=== PATIENT | male | born 1955 | race Caucasian/White ===

== ENCOUNTER 2016-08-25 01:03 | Inpatient (IN) | payer MEDICAID ==
[~2016-08-25] VITALS: Ht 185.4 cm; Wt 90.7 kg
[~2016-08-25 01:03] MED LIST: B50 PO; BENA20TA3 PO; FOLI5TAB PO; GLIP10TA10 PO; HUM3INSU; HYDR-4005 PO; INS5050 SUBCUT; MULT-1116 PO; OMEP20CA10 PO; SIME80TA PO; THIA100T13 PO
[2016-08-25] MEDS ORDERED: ONDANSETRON HCL 4MG/2ML VIAL IV STA (03:59)
[2016-08-25] MEDS ORDERED: MORPHINE SULFATE 4 MG/ML CPJ (NOT FOR IM USE) IV STA (03:59)
[2016-08-25 04:27] LABS: BASOPHILS % 0.7 % (0.0-2.0); EOSINOPHILS % 3.2 % (0.0-5.0); HEMOGLOBIN. 14.2 g/dL (14.0-18.0); LYMPHOCYTES % 56.3 % (20.0-50.0); MEAN CORPUSCULAR HEMOGLOBIN 34.6 pg (28.0-32.0); MEAN CORPUSCULAR VOLUME 99.7 fL (80.0-94.0); MEAN PLATELET VOLUME 7.7 fl (7.4-10.4); MONOCYTES % 7.4 % (2.0-8.0); NEUTROPHILS % 32.4 % (40.0-76.0); PLATELET 289 x1000/uL (130-400); RED BLOOD CELL COUNT 4.11 mill/uL (4.7-6.1); RED CELL DISTRIBUTION WIDTH 12.9 % (11.6-14.6)
[2016-08-25 04:47] LABS: CARBON DIOXIDE 26 mEq/L (21-32); CHLORIDE 111 mEq/L (98-107); TROPONIN I < 0.02 ng/mL (0.00-0.04)
[2016-08-25] MEDS ORDERED: DEXTROSE 50% WATER 50ML SYRINGE IV PRN (10:00)
[2016-08-25] MEDS ORDERED: CLONIDINE 0.1MG TABLET PO PRN (10:00)
[2016-08-25] MEDS ORDERED: SIMETHICONE 80MG TABLET CHEW PO PRN (10:00)
[2016-08-25] MEDS ORDERED: ONDANSETRON HCL 4MG/2ML VIAL IV PRN (10:00)
[2016-08-25] MEDS ORDERED: MAGNESIUM/ALUMINUM HYDROXIDE/SIMETHICONE 30ML UDC PO PRN (10:00)
[2016-08-25] MEDS ORDERED: ACETAMINOPHEN 325MG TABLET PO PRN (10:00)
[2016-08-25] MEDS ORDERED: MVI, ADULT NO.1 10 ML, FOLIC ACID 1 MG, THIAMINE HCL 100 MG in SODIUM CHLORIDE 0.9% 1,0... IV ONE ×4 (10:30)
[2016-08-25] MEDS: LORAZEPAM 2MG/ML CPJ IV PRN ×3 (10:51→23:33)
[2016-08-25] MEDS: BENAZEPRIL 20MG TABLET PO SCH (11:40)
[2016-08-25] MEDS: OMEPRAZOLE 20MG CAPSULE EXTENDED RELEASE PO SCH (11:40)
[2016-08-25] MEDS: BLOOD SUGAR DIAGNOSTIC STRIP TEST SCH ×3 (12:50→21:53)
[2016-08-25] MEDS: CHLORDIAZEPOXIDE 25MG CAPSULE PO SCH ×2 (13:33→21:48)
[2016-08-25] MEDS: INSULIN LISPRO 100 UNITS/ML SUBCUT SCH ×3 (13:34→22:01)
[2016-08-25] MEDS ORDERED: IPRATROPIUM/ALBUTEROL 0.5-3(2.5)MG/3ML NEB HHN PRN (14:45)
[2016-08-25] MEDS ORDERED: LORAZEPAM 2MG/ML CPJ IV PRN (15:00)
[2016-08-25] MEDS: IPRATROPIUM/ALBUTEROL 0.5-3(2.5)MG/3ML NEB HHN SCH ×2 (16:32→20:44)
[2016-08-25 16:56] LABS: CREATINE KINASE 80 IU/L (39-308); TROPONIN I < 0.02 ng/mL (0.00-0.04)
[2016-08-25 20:13] LABS: CLARITY URINE CLEAR (CLEAR); COLOR URINE YELLOW (YELLOW); KETONES URINE NEGATIVE (NEGATIVE); LEUKOCYTE ESTERASE URINE NEGATIVE (NEGATIVE); NITRITE URINE NEGATIVE (NEGATIVE); OCCULT BLOOD URINE NEGATIVE (NEGATIVE); PROTEIN URINE NEGATIVE (NEGATIVE); SPECIFIC GRAVITY URINE 1.014 (1.005-1.030); UROBILINOGEN URINE 0.2 E.U./dL (0.2-1.0)
[2016-08-25 20:27] LABS: *AMPHETAMINES SCREEN URINE NEGATIVE (NEGATIVE); *BARBITURATES SCREEN URINE NEGATIVE (NEGATIVE); *BENZODIAZEPINES SCREEN URINE NEGATIVE (NEGATIVE); *COCAINE SCREEN URINE NEGATIVE (NEGATIVE); CANNABINOID URINE SCREEN NEGATIVE (NEGATIVE); METHADONE URINE SCREEN NEGATIVE (NEGATIVE); OPIATES URINE SCREEN PRESUMTIVE POSITIVE (NEGATIVE); PHENCYCLIDINE URINE SCREEN NEGATIVE (NEGATIVE)
[2016-08-25] MEDS: DIPHENHYDRAMINE 50MG CAPSULE PO PRN (21:52)
[2016-08-25] MEDS: HYDROCODONE/ACETAMINOPHEN 5/325MG TABLET PO PRN (22:47)
[2016-08-26] MEDS: IPRATROPIUM/ALBUTEROL 0.5-3(2.5)MG/3ML NEB HHN SCH ×5 (00:53→16:00)
[2016-08-26] MEDS: CHLORDIAZEPOXIDE 25MG CAPSULE PO SCH ×2 (05:36→12:45)
[2016-08-26] MEDS: BLOOD SUGAR DIAGNOSTIC STRIP TEST SCH ×2 (06:13→12:37)
[2016-08-26 06:27] LABS: BG BASE EXCESS 2.2 mmol/L (-2.0-2.0); BG CARBOXYHEMOGLOBIN 0.8 % (0.5-1.5); BG DEOXYHEMOGLOBIN 7.2 % (0.0-5.0); BG METHEMOGLOBIN 0.3 % (0.0-1.5); BG OXYGEN SATURATION 92.7 % (92.0-98.5); BG OXYHEMOGLOBIN 91.7 % (94.0-97.0); BG PCO2 42.8 mmHg (35.0-45.0); BG PH 7.418 (7.350-7.450); BG PO2 66.9 mmHg (75.0-100.0); BG SAMPLE SITE RIGHT RADIAL; BG TOTAL HEMOGLOBIN 13.7 g/dL (12.0-18.0); BG VENT MODE ROOM AIR
[2016-08-26 06:58] LABS: BASOPHILS % 0.6 % (0.0-2.0); EOSINOPHILS % 2.7 % (0.0-5.0); HEMATOCRIT. 36.9 % (42.0-52.0); HEMOGLOBIN. 12.8 g/dL (14.0-18.0); MEAN CORPUSCULAR HEMOGLOBIN 34.8 pg (28.0-32.0); MEAN CORPUSCULAR VOLUME 100.2 fL (80.0-94.0); MEAN PLATELET VOLUME 8.6 fl (7.4-10.4); MONOCYTES % 8.6 % (2.0-8.0); NEUTROPHILS % 50.1 % (40.0-76.0); PLATELET 237 x1000/uL (130-400); RED BLOOD CELL COUNT 3.69 mill/uL (4.7-6.1); RED CELL DISTRIBUTION WIDTH 12.6 % (11.6-14.6)
[2016-08-26 07:08] LABS: CHLORIDE 100 mEq/L (98-107)
[2016-08-26 07:33] LABS: CARBON DIOXIDE 28 mEq/L (21-32); CREATINE KINASE 60 IU/L (39-308); HDL CHOLESTEROL 43 mg/dL (40-59); LDL CHOLESTEROL 67 mg/dL (5-100); T4 FREE 0.91 ng/dL (0.76-1.46); TROPONIN I < 0.02 ng/mL (0.00-0.04)
[2016-08-26] MEDS ORDERED: GLIPIZIDE 10MG TABLET PO SCH (07:40)
[2016-08-26] MEDS: OMEPRAZOLE 20MG CAPSULE EXTENDED RELEASE PO SCH (08:25)
[2016-08-26] MEDS: BENAZEPRIL 20MG TABLET PO SCH (08:26)
[2016-08-26] MEDS: INSULIN LISPRO 100 UNITS/ML SUBCUT SCH ×2 (08:30→12:44)
[2016-08-26] MEDS: LORAZEPAM 2MG/ML CPJ IV PRN ×2 (08:41→13:15)
[2016-08-26] MEDS: DIPHENHYDRAMINE 50MG CAPSULE PO PRN (08:41)
[2016-08-26] MEDS ORDERED: FOLIC ACID/VITAMIN B COMP W-C TABLET PO SCH (09:00)
[2016-08-26] MEDS ORDERED: THIAMINE HCL 100MG TABLET PO SCH (09:00)
[2016-08-26] MEDS: HYDROCODONE/ACETAMINOPHEN 5/325MG TABLET PO PRN ×2 (09:48→15:58)
[2016-08-26] MEDS ORDERED: GUAIFENESIN/CODEINE 100-10MG/5ML UDC PO PRN (12:00)
[2016-08-26] MEDS ORDERED: LEVOFLOXACIN 500MG PREMIX 100 ML IV SCH (13:00)
[2016-08-26] MEDS ORDERED: METHYLPREDNISOLONE SOD SUCC 40 MG/ML VIAL IV SCH (14:00)
[2016-08-26 15:58] VITALS: BP 114/59
[2016-08-26] MEDS ORDERED: INSULIN DETEMIR UD 100 UNITS/ML SYR SUBCUT SCH (22:00)
[2016-08-27] MEDS ORDERED: FAMOTIDINE 20MG TABLET PO SCH (09:00)
[2016-10-19] MEDS ORDERED: AMLO10TA80 PO (22:10)
[2016-10-19] MEDS ORDERED: BENA10TA3 PO (22:10)
[2016-10-19] MEDS ORDERED: NAPR-681 PO (22:10)
[2016-10-19] MEDS ORDERED: ASPI-1159 PO (22:10)
[2016-10-19] MEDS ORDERED: SERT25TA74 PO (22:10)
[2016-10-19] MEDS ORDERED: ATOR10TA PO (22:10)
== END 2016-08-26 16:45 | disposition left against medical advice (07) | DRG 203 ==
LOC: ER 01:03 → 7WST 05:24 → ENRESERV 11:54 → 7WST 14:49
PROVIDERS: ADMIT Internal Medicine; ATTEND Internal Medicine
DX: M94.0 Chondrocostal junction syndrome [Tietze] (principal); E11.649 Type 2 diabetes mellitus with hypoglycemia without coma; I24.9 Acute ischemic heart disease, unspecified; I10 Essential (primary) hypertension; E11.9 Type 2 diabetes mellitus without complications; F10.10 Alcohol abuse, uncomplicated; F17.200 Nicotine dependence, unspecified, uncomplicated; Z53.21 Procedure and treatment not carried out due to patient leaving prior to being seen by health care provider; J40 Bronchitis, not specified as acute or chronic; R51 Headache; F32.9 Major depressive disorder, single episode, unspecified; Z79.4 Long term (current) use of insulin; Z79.899 Other long term (current) drug therapy
CPT/HCPCS: 36415; 36600; 70450; 71010; 80053; 80061; 80305; 81001; 82375; 82550; 82805; 82962; 83690; 83880; 84439; 84443; 84484; 85025; 93005; 93306; 93970; 94640; 96365; 96366; 96375; 99285; J1815; J1956; J2060; J2270; J2405; J2920; J3411; J3490; J7030; J7050; J7620; Q0163

== ENCOUNTER 2016-10-25 02:40 | Emergency (ER) | payer MEDICAID ==
[~2016-10-25] VITALS: Ht 182.9 cm; Wt 81.0 kg
[~2016-10-25 02:40] MED LIST changes: +AMLO10TA80 PO; +ASPI-1159 PO; +ATOR10TA PO; +BENA10TA3 PO; -BENA20TA3 PO; +NAPR-681 PO; +SERT25TA74 PO
[2016-10-25] MEDS ORDERED: KETOROLAC 30MG/ML VIAL IV STA (07:13)
[2016-10-25] MEDS ORDERED: METHYLPREDNISOLONE SOD SUCC 125 MG/2 ML VIAL IV STA (07:13)
[2016-10-25] MEDS ORDERED: SODIUM CHLORIDE 0.9% 1,000 ML IV ONE (07:13)
[2016-10-25] MEDS ORDERED: IPRATROPIUM/ALBUTEROL 0.5-3(2.5)MG/3ML NEB HHN ONE ×2 (07:15→09:45)
[2016-10-25 07:40] LABS: BASOPHILS % 1.3 % (0.0-2.0); EOSINOPHILS % 3.6 % (0.0-5.0); HEMATOCRIT. 37.6 % (42.0-52.0); HEMOGLOBIN. 12.9 g/dL (14.0-18.0); LYMPHOCYTES % 52.5 % (20.0-50.0); MEAN CORPUSCULAR HEMOGLOBIN 34.5 pg (28.0-32.0); MEAN CORPUSCULAR VOLUME 100.4 fL (80.0-94.0); MEAN PLATELET VOLUME 8.4 fl (7.4-10.4); MONOCYTES % 9.2 % (2.0-8.0); NEUTROPHILS % 33.4 % (40.0-76.0); PLATELET 208 x1000/uL (130-400); RED BLOOD CELL COUNT 3.75 mill/uL (4.7-6.1)
[2016-10-25 07:56] LABS: CARBON DIOXIDE 26 mEq/L (21-32); CHLORIDE 108 mEq/L (98-107)
[2016-10-25] MEDS ORDERED: MORPHINE SULFATE 2 MG/ML CPJ (NOT FOR IM USE) IV ONE (10:00)
[2016-10-25] MEDS ORDERED: MAGNESIUM/ALUMINUM HYDROXIDE/SIMETHICONE 30ML UDC PO STA (10:23)
[2016-10-25] MEDS ORDERED: VISCOUS LIDOCAINE 2% 15 ML UDC PO STA (10:23)
[2016-10-25 13:09] VITALS: BP 105/69
== END 2016-10-25 13:10 | disposition home or self-care (01) ==
LOC: ER 02:58
DX: J44.1 Chronic obstructive pulmonary disease with (acute) exacerbation (principal); F10.10 Alcohol abuse, uncomplicated; F32.9 Major depressive disorder, single episode, unspecified; E11.9 Type 2 diabetes mellitus without complications; I10 Essential (primary) hypertension; R07.89 Other chest pain; F17.200 Nicotine dependence, unspecified, uncomplicated; Z79.82 Long term (current) use of aspirin; Z79.4 Long term (current) use of insulin
CPT/HCPCS: 36415; 71020; 80053; 82962; 84484; 85025; 93005; 94640; 96361; 96374; 96375; 99285; J1885; J2270; J2930; J7030; Z7610; J7620

== ENCOUNTER 2016-11-04 02:26 | Emergency (ER) | payer MEDICAID ==
[~2016-11-04] VITALS: Ht 170.2 cm; Wt 88.5 kg
[2016-11-04] MEDS ORDERED: SODIUM CHLORIDE 0.9% 1,000 ML IV ONE (06:28)
[2016-11-04] MEDS ORDERED: METHYLPREDNISOLONE SOD SUCC 125 MG/2 ML VIAL IV STA (06:28)
[2016-11-04] MEDS ORDERED: PREDNISONE 20MG TABLET PO STA (06:28)
[2016-11-04] MEDS ORDERED: IPRATROPIUM/ALBUTEROL 0.5-3(2.5)MG/3ML NEB HHN ONE ×2 (06:30→07:30)
[2016-11-04 07:11] LABS: CHLORIDE 107 mEq/L (98-107)
[2016-11-04 07:12] LABS: EOSINOPHILS % 4.1 % (0.0-5.0); HEMATOCRIT. 36.9 % (42.0-52.0); HEMOGLOBIN. 12.8 g/dL (14.0-18.0); LYMPHOCYTES % 40.1 % (20.0-50.0); MEAN CORPUSCULAR HEMOGLOBIN 34.6 pg (28.0-32.0); MEAN CORPUSCULAR VOLUME 99.4 fL (80.0-94.0); MEAN PLATELET VOLUME 8.2 fl (7.4-10.4); MONOCYTES % 12.8 % (2.0-8.0); PLATELET 229 x1000/uL (130-400); RED BLOOD CELL COUNT 3.71 mill/uL (4.7-6.1); RED CELL DISTRIBUTION WIDTH 13.2 % (11.6-14.6)
[2016-11-04 07:20] LABS: CARBON DIOXIDE 22 mEq/L (21-32); ETHANOL BLOOD 142 mg/dL
[2016-11-04 09:00] VITALS: BP 114/93
== END 2016-11-04 09:04 | disposition home or self-care (01) ==
LOC: ER 02:26
DX: J44.1 Chronic obstructive pulmonary disease with (acute) exacerbation (principal); F10.229 Alcohol dependence with intoxication, unspecified; G92 Toxic encephalopathy; Y90.6 Blood alcohol level of 120-199 mg/100 ml; E11.9 Type 2 diabetes mellitus without complications; K75.9 Inflammatory liver disease, unspecified; Z87.01 Personal history of pneumonia (recurrent); Z79.4 Long term (current) use of insulin; Z79.82 Long term (current) use of aspirin; I11.9 Hypertensive heart disease without heart failure; Z86.59 Personal history of other mental and behavioral disorders
CPT/HCPCS: 36415; 70450; 71010; 80053; 85025; 93005; 94640; 96361; 96374; 99285; G0482; J2930; J7030; J7512; Z7610; J7620

== ENCOUNTER 2017-06-13 00:18 | Emergency (ER) | payer MEDICAID ==
[~2017-06-13] VITALS: Ht 177.8 cm; Wt 86.0 kg
[2017-06-13 02:52] VITALS: BP 112/69
== END 2017-06-13 03:15 | disposition left against medical advice (07) ==
LOC: ER 00:18
DX: R51 Headache (principal); Z53.21 Procedure and treatment not carried out due to patient leaving prior to being seen by health care provider

== ENCOUNTER 2017-11-09 02:11 | Emergency (ER) | payer MEDICAID ==
[~2017-11-09] VITALS: Ht 182.9 cm; Wt 86.0 kg
[~2017-11-09 02:11] MED LIST changes: +BENA10TA10 PO; -BENA10TA3 PO
[2017-11-09] MEDS ORDERED: PREDNISONE 20MG TABLET PO STA (02:36)
[2017-11-09] MEDS ORDERED: IPRATROPIUM BROMIDE (0.02%) 0.5MG/2.5ML NEB HHN STA (02:36)
[2017-11-09] MEDS: ALBUTEROL (0.083%) 2.5MG/3ML NEB HHN SCH ×2 (03:00→03:30)
[2017-11-09 03:11] LABS: CHLORIDE 104 mEq/L (98-107)
[2017-11-09 03:21] LABS: BASOPHILS % 0.6 % (0.0-2.0); EOSINOPHILS % 2.5 % (0.0-5.0); HEMATOCRIT. 39.6 % (42.0-52.0); HEMOGLOBIN. 13.5 g/dL (14.0-18.0); LYMPHOCYTES % 37.2 % (20.0-50.0); MEAN CORPUSCULAR HEMOGLOBIN 34.1 pg (28.0-32.0); MEAN CORPUSCULAR VOLUME 99.8 fL (80.0-94.0); MEAN PLATELET VOLUME 8.4 fl (7.4-10.4); MONOCYTES % 9.6 % (2.0-8.0); NEUTROPHILS % 50.1 % (40.0-76.0); PLATELET 274 x1000/uL (130-400); RED BLOOD CELL COUNT 3.97 mill/uL (4.7-6.1); RED CELL DISTRIBUTION WIDTH 13.3 % (11.6-14.6)
[2017-11-09 03:26] LABS: PROTHROMBIN TIME 9.9 sec (9.1-11.1)
[2017-11-09] MEDS ORDERED: HYDROCODONE/ACETAMINOPHEN 5/325MG TABLET PO ONE (03:45)
[2017-11-09] MEDS ORDERED: HYDROCODONE/ACETAMINOPHEN 5/325MG TABLET PO SCH (04:18)
[2017-11-09 04:45] VITALS: BP 128/77
== END 2017-11-09 04:48 | disposition home or self-care (01) ==
LOC: ER 02:11
DX: J44.1 Chronic obstructive pulmonary disease with (acute) exacerbation (principal); I10 Essential (primary) hypertension; E11.9 Type 2 diabetes mellitus without complications; F41.9 Anxiety disorder, unspecified; F17.200 Nicotine dependence, unspecified, uncomplicated; Z79.4 Long term (current) use of insulin
CPT/HCPCS: 36415; 71045; 80053; 83880; 84484; 85025; 85610; 93005; 94640; 99285; J7512; J7611; Z7610

== ENCOUNTER 2018-03-03 00:53 | Emergency (ER) | payer MEDICAID ==
[~2018-03-03] VITALS: Ht 177.8 cm; Wt 82.0 kg
[2018-03-03] MEDS ORDERED: HYDROCODONE/ACETAMINOPHEN 5/325MG TABLET PO ONE (03:30)
[2018-03-03 04:15] VITALS: BP 144/67
== END 2018-03-03 06:39 | disposition home or self-care (01) ==
LOC: ER 00:53
DX: S80.11XA Contusion of right lower leg, initial encounter (principal); E11.9 Type 2 diabetes mellitus without complications; F41.9 Anxiety disorder, unspecified; J44.9 Chronic obstructive pulmonary disease, unspecified; F32.9 Major depressive disorder, single episode, unspecified; F17.200 Nicotine dependence, unspecified, uncomplicated; Z79.4 Long term (current) use of insulin; Z79.82 Long term (current) use of aspirin; W01.0XXA Fall on same level from slipping, tripping and stumbling without subsequent striking against object, initial encounter; Y93.89 Activity, other specified; Y92.018 Other place in single-family (private) house as the place of occurrence of the external cause
CPT/HCPCS: 73552; 73562; 99283; L1830

== ENCOUNTER 2019-04-16 21:36 | Emergency (ER) | payer MEDICAID ==
[~2019-04-16] VITALS: Ht 185.4 cm; Wt 88.1 kg
[~2019-04-16 21:36] MED LIST changes: -ASPI-1159 PO; +ASPI-1497 PO; -BENA10TA10 PO; +BENA10TA74 PO; -OMEP20CA10 PO; +OMEP20CA14 PO
[2019-04-17] MEDS ORDERED: IBUPROFEN 600MG TABLET PO STA (01:09)
[2019-04-17 01:48] LABS: BASOPHILS % 1.1 % (0.0-2.0); EOSINOPHILS % 2.8 % (0.0-5.0); HEMATOCRIT. 37.9 % (42.0-52.0); HEMOGLOBIN. 13.3 g/dL (14.0-18.0); LYMPHOCYTES % 43.2 % (20.0-50.0); MEAN CORPUSCULAR HEMOGLOBIN 34.7 pg (28.0-32.0); MEAN CORPUSCULAR VOLUME 99.1 fL (80.0-94.0); MEAN PLATELET VOLUME 8.1 fl (7.4-10.4); MONOCYTES % 9.6 % (2.0-8.0); NEUTROPHILS % 43.3 % (40.0-76.0); PLATELET 358 x1000/uL (130-400); RED BLOOD CELL COUNT 3.83 mill/uL (4.7-6.1); RED CELL DISTRIBUTION WIDTH 13.5 % (11.6-14.6)
[2019-04-17 01:54] LABS: CHLORIDE 102 mEq/L (98-107)
[2019-04-17 03:33] LABS: CLARITY URINE CLEAR (CLEAR); COLOR URINE YELLOW (YELLOW); KETONES URINE NEGATIVE (NEGATIVE); LEUKOCYTE ESTERASE URINE NEGATIVE (NEGATIVE); NITRITE URINE NEGATIVE (NEGATIVE); OCCULT BLOOD URINE NEGATIVE (NEGATIVE); PH URINE 5.5 (4.5-8.0); PROTEIN URINE NEGATIVE (NEGATIVE); SPECIFIC GRAVITY URINE 1.004 (1.005-1.030); UROBILINOGEN URINE 0.2 E.U./dL (0.2-1.0)
[2019-04-17] MEDS ORDERED: KETOROLAC 60MG/2ML VIAL IM ONE (05:15)
[2019-04-17 06:00] VITALS: BP 136/65
== END 2019-04-17 06:29 | disposition home or self-care (01) ==
LOC: ER 21:36
DX: R07.89 Other chest pain (principal); H61.20 Impacted cerumen, unspecified ear; E11.9 Type 2 diabetes mellitus without complications; E78.00 Pure hypercholesterolemia, unspecified; I10 Essential (primary) hypertension; H40.9 Unspecified glaucoma; Z79.82 Long term (current) use of aspirin; Z79.899 Other long term (current) drug therapy
CPT/HCPCS: 36415; 71045; 80053; 81003; 82962; 84484; 85025; 93005; 96372; 99285; J1885

== ENCOUNTER 2019-05-12 12:47 | Emergency (ER) | payer MEDICAID ==
[~2019-05-12] VITALS: Ht 185.4 cm; Wt 87.0 kg
[2019-05-12 13:01] VITALS: BP 124/71
== END 2019-05-12 16:30 | disposition left against medical advice (07) ==
LOC: ER 12:47
DX: R10.9 Unspecified abdominal pain (principal); Z53.21 Procedure and treatment not carried out due to patient leaving prior to being seen by health care provider

== ENCOUNTER 2019-07-08 22:08 | Emergency (ER) | payer MEDICAID ==
[~2019-07-08] VITALS: Ht 185.4 cm; Wt 87.0 kg
[2019-07-09 00:04] LABS: *AMPHETAMINES SCREEN URINE NEGATIVE (NEGATIVE); *BARBITURATES SCREEN URINE NEGATIVE (NEGATIVE); *BENZODIAZEPINES SCREEN URINE NEGATIVE (NEGATIVE); *COCAINE SCREEN URINE NEGATIVE (NEGATIVE)
[2019-07-09 00:05] LABS: CANNABINOID URINE SCREEN NEGATIVE (NEGATIVE); METHADONE URINE SCREEN NEGATIVE (NEGATIVE); OPIATES URINE SCREEN NEGATIVE (NEGATIVE); PHENCYCLIDINE URINE SCREEN NEGATIVE (NEGATIVE)
[2019-07-09 00:08] LABS: CHLORIDE 102 mEq/L (98-107)
[2019-07-09 00:13] LABS: BASOPHILS % 0.9 % (0.0-2.0); EOSINOPHILS % 1.8 % (0.0-5.0); ETHANOL BLOOD 136 mg/dL; HEMATOCRIT. 36.9 % (42.0-52.0); HEMOGLOBIN. 12.6 g/dL (14.0-18.0); MEAN CORPUSCULAR VOLUME 96.6 fL (80.0-94.0); MEAN PLATELET VOLUME 8.3 fl (7.4-10.4); MONOCYTES % 9.5 % (2.0-8.0); NEUTROPHILS % 50.8 % (40.0-76.0); PLATELET 282 x1000/uL (130-400); RED BLOOD CELL COUNT 3.82 mill/uL (4.7-6.1)
[2019-07-09 00:16] LABS: BETA HYDROXYBUTYRATE 0.2 mMol/L (0.0-0.3)
[2019-07-09 00:46] LABS: CLARITY URINE CLEAR (CLEAR); COLOR URINE YELLOW (YELLOW); KETONES URINE NEGATIVE (NEGATIVE); LEUKOCYTE ESTERASE URINE NEGATIVE (NEGATIVE); NITRITE URINE NEGATIVE (NEGATIVE); OCCULT BLOOD URINE NEGATIVE (NEGATIVE); PROTEIN URINE NEGATIVE (NEGATIVE); SPECIFIC GRAVITY URINE 1.015 (1.005-1.030); UROBILINOGEN URINE 0.2 E.U./dL (0.2-1.0)
[2019-07-09 04:47] VITALS: BP 126/76
== END 2019-07-09 04:49 | disposition home or self-care (01) ==
LOC: ER 22:08
DX: F10.129 Alcohol abuse with intoxication, unspecified (principal); M62.81 Muscle weakness (generalized); E11.65 Type 2 diabetes mellitus with hyperglycemia; I10 Essential (primary) hypertension; H40.9 Unspecified glaucoma; Y90.6 Blood alcohol level of 120-199 mg/100 ml; Z79.4 Long term (current) use of insulin; Z79.82 Long term (current) use of aspirin
CPT/HCPCS: 36415; 80053; 80305; 80320; 81003; 82010; 82962; 83880; 84484; 85025; 93005; 99285; G0480

== ENCOUNTER 2019-07-17 16:06 | Emergency (ER) | payer MEDICAID ==
[~2019-07-17] VITALS: Ht 177.8 cm; Wt 77.0 kg
[2019-07-17 16:13] VITALS: BP 92/60
== END 2019-07-17 17:09 | disposition left against medical advice (07) ==
LOC: ER 16:06
DX: R10.9 Unspecified abdominal pain (principal); Z53.21 Procedure and treatment not carried out due to patient leaving prior to being seen by health care provider

== ENCOUNTER 2020-06-25 22:31 | Emergency (ER) | payer MEDICAID ==
[~2020-06-25] VITALS: Ht 182.9 cm; Wt 76.0 kg
[2020-06-25 23:57] LABS: BASOPHILS % 0.6 % (0.0-2.0); EOSINOPHILS % 1.6 % (0.0-5.0); HEMOGLOBIN. 12.2 g/dL (14.0-18.0); MEAN CORPUSCULAR HEMOGLOBIN 33.8 pg (28.0-32.0); MEAN CORPUSCULAR VOLUME 97.2 fL (80.0-94.0); MEAN PLATELET VOLUME 7.3 fl (7.4-10.4); MONOCYTES % 9.3 % (2.0-8.0); NEUTROPHILS % 41.5 % (40.0-76.0); PLATELET 265 x1000/uL (130-400); RED CELL DISTRIBUTION WIDTH 14.2 % (11.6-14.6)
[2020-06-26] MEDS ORDERED: ACETAMINOPHEN 325MG TABLET PO ONE
[2020-06-26 00:06] LABS: CHLORIDE 105 mEq/L (98-107)
[2020-06-26 00:16] LABS: PHENCYCLIDINE URINE SCREEN NEGATIVE (NEGATIVE)
[2020-06-26 00:18] LABS: *AMPHETAMINES SCREEN URINE NEGATIVE (NEGATIVE); *BARBITURATES SCREEN URINE NEGATIVE (NEGATIVE); *BENZODIAZEPINES SCREEN URINE NEGATIVE (NEGATIVE); *COCAINE SCREEN URINE NEGATIVE (NEGATIVE); CANNABINOID URINE SCREEN NEGATIVE (NEGATIVE); METHADONE URINE SCREEN NEGATIVE (NEGATIVE)
[2020-06-26 00:20] LABS: OPIATES URINE SCREEN NEGATIVE (NEGATIVE)
[2020-06-26 02:00] VITALS: BP 120/52
== END 2020-06-26 02:20 | disposition home or self-care (01) ==
LOC: ER 22:31
DX: S00.03XA Contusion of scalp, initial encounter (principal); R07.89 Other chest pain; F10.229 Alcohol dependence with intoxication, unspecified; E11.9 Type 2 diabetes mellitus without complications; I10 Essential (primary) hypertension; G43.909 Migraine, unspecified, not intractable, without status migrainosus; F17.290 Nicotine dependence, other tobacco product, uncomplicated; W18.39XA Other fall on same level, initial encounter; Y93.89 Activity, other specified; Y92.89 Other specified places as the place of occurrence of the external cause; Y99.8 Other external cause status; Z79.899 Other long term (current) drug therapy
CPT/HCPCS: 36415; 71045; 80053; 80305; 84484; 85025; 93005; 99285

== ENCOUNTER 2021-05-01 21:05 | Emergency (ER) | payer MEDICAID ==
[~2021-05-01] VITALS: Ht 170.2 cm; Wt 73.0 kg
[2021-05-01 23:11] LABS: BASOPHILS % 1.1 % (0.0-2.0); EOSINOPHILS % 0.6 % (0.0-5.0); HEMATOCRIT. 45.6 % (42.0-52.0); LYMPHOCYTES % 41.6 % (20.0-50.0); MEAN CORPUSCULAR HEMOGLOBIN 34.5 pg (28.0-32.0); MEAN CORPUSCULAR VOLUME 98.8 fL (80.0-94.0); MONOCYTES % 8.3 % (2.0-8.0); NEUTROPHILS % 48.4 % (40.0-76.0); PLATELET 384 x1000/uL (130-400); RED BLOOD CELL COUNT 4.62 mill/uL (4.7-6.1); RED CELL DISTRIBUTION WIDTH 13.9 % (11.6-14.6)
[2021-05-01 23:25] LABS: CHLORIDE 100 mEq/L (98-107)
[2021-05-01 23:30] LABS: ETHANOL BLOOD 230 mg/dL
[2021-05-01 23:43] LABS: CLARITY URINE CLEAR (CLEAR); COLOR URINE YELLOW (YELLOW); KETONES URINE NEGATIVE (NEGATIVE); LEUKOCYTE ESTERASE URINE NEGATIVE (NEGATIVE); NITRITE URINE NEGATIVE (NEGATIVE); OCCULT BLOOD URINE NEGATIVE (NEGATIVE); PROTEIN URINE NEGATIVE (NEGATIVE); UROBILINOGEN URINE 0.2 E.U./dL (0.2-1.0)
[2021-05-02] MEDS ORDERED: ACETAMINOPHEN 325MG TABLET PO ONE
[2021-05-02 00:21] LABS: *AMPHETAMINES SCREEN URINE NEGATIVE (NEGATIVE)
[2021-05-02 00:22] LABS: *BENZODIAZEPINES SCREEN URINE NEGATIVE (NEGATIVE); *COCAINE SCREEN URINE NEGATIVE (NEGATIVE); CANNABINOID URINE SCREEN NEGATIVE (NEGATIVE); METHADONE URINE SCREEN NEGATIVE (NEGATIVE); OPIATES URINE SCREEN NEGATIVE (NEGATIVE); PHENCYCLIDINE URINE SCREEN NEGATIVE (NEGATIVE)
[2021-05-02 02:20] LABS: *BARBITURATES SCREEN URINE NEGATIVE (NEGATIVE)
[2021-05-02] MEDS ORDERED: CHLORDIAZEPOXIDE 25MG CAPSULE PO ONE (05:30)
[2021-05-02] MEDS ORDERED: FAMOTIDINE 20MG TABLET PO ONE (08:45)
[2021-05-02] MEDS ORDERED: DICYCLOMINE 10 MG/5 ML ORAL SYR PO STA (08:59)
[2021-05-02] MEDS ORDERED: MAGNESIUM/ALUMINUM HYDROXIDE/SIMETHICONE 30ML UDC PO STA (08:59)
[2021-05-02] MEDS ORDERED: VISCOUS LIDOCAINE 2% 15 ML UDC PO STA (08:59)
[2021-05-02] MEDS ORDERED: ARIPIPRAZOLE 5MG TABLET PO SCH (10:15)
[2021-05-02] MEDS ORDERED: FLUOXETINE HCL 10 MG CAPSULE PO SCH (10:15)
[2021-05-02] MEDS ORDERED: LORAZEPAM 1MG TABLET PO ONE (13:00)
[2021-05-02] MEDS ORDERED: INSULIN REGULAR (HUMULIN R) 300UNITS/3ML VIAL SUBCUT ONE (20:30)
[2021-05-02 21:57] VITALS: BP 130/76
== END 2021-05-02 22:04 | disposition home or self-care (01) ==
LOC: ER 21:05
DX: F32.A Depression, unspecified (principal); R45.851 Suicidal ideations; E11.65 Type 2 diabetes mellitus with hyperglycemia; I10 Essential (primary) hypertension; F10.229 Alcohol dependence with intoxication, unspecified; Y90.7 Blood alcohol level of 200-239 mg/100 ml; Z20.822 Contact with and (suspected) exposure to COVID-19; Z79.4 Long term (current) use of insulin; Z87.11 Personal history of peptic ulcer disease; Z75.1 Person awaiting admission to adequate facility elsewhere
CPT/HCPCS: 36415; 80053; 80305; 80307; 80320; 80329; 81003; 82962; 85025; 87426; 99285; C9803; J1815; U0003; U0005; G0480

== ENCOUNTER 2021-10-10 | Emergency (ER) | payer MEDICAID ==
[~2021-10-10] VITALS: Ht 177.8 cm; Wt 82.0 kg
[2021-10-10 00:02] VITALS: BP 132/87
[2021-10-10] MEDS ORDERED: FOLIC ACID 1 MG, THIAMINE HCL 100 MG, MVI, ADULT NO.1 10 ML in DEXTROSE 5% WATER 1,000 ML IV ONE ×4 (01:45)
[2021-10-10 03:02] LABS: BASOPHILS % 0.8 % (0.0-2.0); EOSINOPHILS % 2.4 % (0.0-5.0); HEMATOCRIT. 35.5 % (42.0-52.0); HEMOGLOBIN. 12.5 g/dL (14.0-18.0); LYMPHOCYTES % 50.6 % (20.0-50.0); MEAN CORPUSCULAR HEMOGLOBIN 34.2 pg (28.0-32.0); MEAN CORPUSCULAR VOLUME 97.3 fL (80.0-94.0); MEAN PLATELET VOLUME 7.3 fl (7.4-10.4); MONOCYTES % 8.3 % (2.0-8.0); NEUTROPHILS % 37.9 % (40.0-76.0); PLATELET 330 x1000/uL (130-400); RED BLOOD CELL COUNT 3.65 mill/uL (4.7-6.1); RED CELL DISTRIBUTION WIDTH 13.6 % (11.6-14.6)
[2021-10-10 03:10] LABS: CHLORIDE 103 mEq/L (98-107)
[2021-10-10 03:19] LABS: ETHANOL BLOOD 274 mg/dL
[2021-10-10 04:06] LABS: CLARITY URINE CLEAR (CLEAR); COLOR URINE YELLOW (YELLOW); KETONES URINE NEGATIVE (NEGATIVE); LEUKOCYTE ESTERASE URINE NEGATIVE (NEGATIVE); NITRITE URINE NEGATIVE (NEGATIVE); OCCULT BLOOD URINE NEGATIVE (NEGATIVE); PROTEIN URINE NEGATIVE (NEGATIVE); SPECIFIC GRAVITY URINE 1.007 (1.005-1.030); UROBILINOGEN URINE 0.2 E.U./dL (0.2-1.0)
[2021-10-10 04:40] LABS: *AMPHETAMINES SCREEN URINE NEGATIVE (NEGATIVE); *BARBITURATES SCREEN URINE NEGATIVE (NEGATIVE); *BENZODIAZEPINES SCREEN URINE NEGATIVE (NEGATIVE); *COCAINE SCREEN URINE NEGATIVE (NEGATIVE); CANNABINOID URINE SCREEN NEGATIVE (NEGATIVE); METHADONE URINE SCREEN NEGATIVE (NEGATIVE); OPIATES URINE SCREEN NEGATIVE (NEGATIVE); PHENCYCLIDINE URINE SCREEN NEGATIVE (NEGATIVE)
== END 2021-10-10 05:41 | disposition home or self-care (01) ==
LOC: ER
DX: T51.0X1A Toxic effect of ethanol, accidental (unintentional), initial encounter (principal); I10 Essential (primary) hypertension; E11.9 Type 2 diabetes mellitus without complications; Z79.899 Other long term (current) drug therapy; Z86.59 Personal history of other mental and behavioral disorders; Z98.890 Other specified postprocedural states; Y92.9 Unspecified place or not applicable
CPT/HCPCS: 36415; 70450; 71045; 74176; 80053; 80305; 80320; 81003; 83605; 83690; 84484; 85025; 96365; 96366; 99285; J3411; J3490; J7070; G0480

== ENCOUNTER 2022-06-04 22:16 | Emergency (ER) | payer OTHER | END 2022-06-04 22:47 | disposition left against medical advice (07) | LOC: ER 22:16 | DX: Z53.21 Procedure and treatment not carried out due to patient leaving prior to being seen by health care provider (principal) ==

== ENCOUNTER 2023-06-02 00:03 | Emergency (ER) | payer OTHER ==
[~2023-06-02] VITALS: Ht 170.2 cm; Wt 69.0 kg
[~2023-06-02 00:03] MED LIST changes: +OMEP40CA20 MT
[2023-06-02 00:08] VITALS: TEMP 98.8; O2SAT 98
[2023-06-02] MEDS: IBUPROFEN 600MG TABLET PO ONE (01:09)
[2023-06-02 01:14] VITALS: BP 122/63; PULSE 79; RESP 16
[2023-06-02] MEDS ORDERED: IBUP-2028 MT (02:40)
[2023-06-02] MEDS ORDERED: HYDR-4001 MT (02:40)
== END 2023-06-02 03:46 | disposition home or self-care (01) ==
LOC: ER 00:09
DX: S52.602A Unspecified fracture of lower end of left ulna, initial encounter for closed fracture (principal); S80.212A Abrasion, left knee, initial encounter; S01.112A Laceration without foreign body of left eyelid and periocular area, initial encounter; E11.9 Type 2 diabetes mellitus without complications; I10 Essential (primary) hypertension; H40.9 Unspecified glaucoma; F10.20 Alcohol dependence, uncomplicated; W01.0XXA Fall on same level from slipping, tripping and stumbling without subsequent striking against object, initial encounter; Y93.89 Activity, other specified; Y92.89 Other specified places as the place of occurrence of the external cause; Y99.8 Other external cause status
CPT/HCPCS: 73110; 73560; 70450; 12011; 29125; 99284; Z7610 ×3

== ENCOUNTER 2024-02-25 20:00 | Emergency (ER) | payer OTHER ==
[~2024-02-25] VITALS: Ht 185.4 cm; Wt 82.0 kg
[~2024-02-25 20:00] MED LIST changes: -GLIP10TA10 PO; +GLIP10TA17 PO; +HYDR-4001 MT; +IBUP-2028 MT
[2024-02-25 20:06] VITALS: BP 95/46; PULSE 66; RESP 18; TEMP 97.9; O2SAT 100
== END 2024-02-25 22:16 | disposition left against medical advice (07) ==
LOC: ER 20:00
DX: M25.531 Pain in right wrist (principal); I10 Essential (primary) hypertension; E11.9 Type 2 diabetes mellitus without complications; K21.9 Gastro-esophageal reflux disease without esophagitis; Z53.21 Procedure and treatment not carried out due to patient leaving prior to being seen by health care provider

== ENCOUNTER 2024-03-19 23:45 | Emergency (ER) | payer OTHER ==
[~2024-03-19] VITALS: Ht 180.3 cm; Wt 93.0 kg
[2024-03-19 23:57] VITALS: TEMP 98.5; O2SAT 98
[2024-03-20 01:26] LABS: CLARITY URINE CLEAR (CLEAR); COLOR URINE YELLOW (YELLOW); GLUCOSE URINE 3+ (NEGATIVE); KETONES URINE NEGATIVE (NEGATIVE); LEUKOCYTE ESTERASE URINE NEGATIVE (NEGATIVE); NITRITE URINE NEGATIVE (NEGATIVE); OCCULT BLOOD URINE NEGATIVE (NEGATIVE); PROTEIN URINE NEGATIVE (NEGATIVE); SPECIFIC GRAVITY URINE 1.008 (1.005-1.030); UROBILINOGEN URINE 0.2 E.U./dL (0.2-1.0)
[2024-03-20 02:29] VITALS: BP 118/57; PULSE 78; RESP 16; O2SAT 99
[2024-03-20] MEDS: ACETAMINOPHEN 325MG TABLET PO ONE (03:45)
[2024-03-20] MEDS ORDERED: CEPH500T MT (04:03)
[2024-03-20 04:59] LABS: RBC URINE NONE SEEN /hpf (0-2); WBC URINE 0-2 /hpf (0-2)
[2024-03-20 05:00] LABS: BACTERIA URINE NONE SEEN; SQUAMOUS EPITHELIAL CELL URINE NONE SEEN /lpf (RARE/1+)
== END 2024-03-20 05:20 | disposition home or self-care (01) ==
LOC: ER 23:45
DX: N39.0 Urinary tract infection, site not specified (principal); E11.9 Type 2 diabetes mellitus without complications; I10 Essential (primary) hypertension; K21.9 Gastro-esophageal reflux disease without esophagitis; Z79.82 Long term (current) use of aspirin; Z79.4 Long term (current) use of insulin; Z79.899 Other long term (current) drug therapy; Z79.84 Long term (current) use of oral hypoglycemic drugs
CPT/HCPCS: 81003; 99283

== ENCOUNTER 2024-06-26 23:23 | Emergency (ER) | payer MEDICARE, MEDICAID ==
[~2024-06-26] VITALS: Ht 175.3 cm; Wt 68.0 kg
[~2024-06-26 23:23] MED LIST changes: +GABA-1180 MT; -GLIP10TA17 PO; -IBUP-2028 MT; +LACT-394 MT; -NAPR-681 PO; +NICO-645 TP; -OMEP20CA14 PO; +TAMS-54 MT
[2024-06-26 23:27] VITALS: O2SAT 98
[2024-06-27 00:55] LABS: BASOPHILS % 0.7 % (0.0-2.0); EOSINOPHILS % 2.5 % (0.0-5.0); HEMATOCRIT. 28.7 % (42.0-52.0); HEMOGLOBIN. 9.8 g/dL (14.0-18.0); LYMPHOCYTES % 44.5 % (20.0-50.0); MEAN CORPUSCULAR HEMOGLOBIN 33.2 pg (28.0-32.0); MEAN CORPUSCULAR HGB CONC 34.3 g/dL (31.0-37.0); MEAN CORPUSCULAR VOLUME 96.7 fL (80.0-94.0); MEAN PLATELET VOLUME 7.3 fl (7.4-10.4); NEUTROPHILS % 45.3 % (40.0-76.0); PLATELET 337 x1000/uL (130-400); RED BLOOD CELL COUNT 2.96 mill/uL (4.7-6.1); RED CELL DISTRIBUTION WIDTH 14.4 % (11.6-14.6); WHITE BLOOD COUNT 7.2 x1000/uL (4.5-11.0)
[2024-06-27 01:01] LABS: CHLORIDE 100 mEq/L (98-107); POTASSIUM 3.7 mEq/L (3.5-5.1); SODIUM 133 mEq/L (136-145)
[2024-06-27 01:02] LABS: CALCIUM 8.5 mg/dL (8.7-10.4); CARBON DIOXIDE 26 mEq/L (21-32)
[2024-06-27 01:07] LABS: CREATININE 0.7 mg/dL (0.6-1.3); ETHANOL BLOOD 238 mg/dL (<10); GLUCOSE 214 mg/dL (70-105); UREA NITROGEN BLOOD 7 mg/dL (9-23)
[2024-06-27 01:08] LABS: TROPONIN I HIGH SENSITIVITY 4 ng/L (3.0-53)
[2024-06-27 04:59] VITALS: BP 130/64; PULSE 65; RESP 18; TEMP 36.8; O2SAT 98
== END 2024-06-27 05:00 | disposition home or self-care (01) ==
LOC: ER 23:23
DX: S09.90XA Unspecified injury of head, initial encounter (principal); F10.129 Alcohol abuse with intoxication, unspecified; I10 Essential (primary) hypertension; E11.9 Type 2 diabetes mellitus without complications; Z79.899 Other long term (current) drug therapy; Z79.82 Long term (current) use of aspirin; Z79.4 Long term (current) use of insulin; Z90.49 Acquired absence of other specified parts of digestive tract; W01.0XXA Fall on same level from slipping, tripping and stumbling without subsequent striking against object, initial encounter; Y93.89 Activity, other specified; Y92.89 Other specified places as the place of occurrence of the external cause; Y99.8 Other external cause status; Y90.7 Blood alcohol level of 200-239 mg/100 ml
CPT/HCPCS: 36415; 71045; 73030; 80048; 80320; 84484; 85025; 99284; 99285; G0480

== ENCOUNTER 2024-08-11 15:20 | Inpatient (IN) | payer MEDICARE, MEDICAID ==
[~2024-08-11] VITALS: Ht 185.4 cm; Wt 77.1 kg
[~2024-08-11 15:20] MED LIST changes: -AMLO10TA80 PO; -B50 PO; +BENA-8 PO; -BENA10TA74 PO; +CHLO25CA10 PO; +FAMO20TA8 PO; -FOLI5TAB PO; -HUM3INSU; -HYDR-4001 MT; -HYDR-4005 PO; -INS5050 SUBCUT; -LACT-394 MT; +LANTUSUD SUBCUT; +METF-414 PO; -NICO-645 TP; +NICO-786 TP; -OMEP40CA20 MT; +OMEP40CA20 PO; +SERT-422 PO; -SERT25TA74 PO
[2024-08-11 15:22] VITALS: O2SAT 98
[2024-08-11 16:11] LABS: BASOPHILS % 1.2 % (0.0-2.0); EOSINOPHILS % 1.1 % (0.0-5.0); HEMATOCRIT. 29.3 % (42.0-52.0); HEMOGLOBIN. 9.7 g/dL (14.0-18.0); LYMPHOCYTES % 31.4 % (20.0-50.0); MEAN CORPUSCULAR HEMOGLOBIN 32.5 pg (28.0-32.0); MEAN CORPUSCULAR VOLUME 98.5 fL (80.0-94.0); MEAN PLATELET VOLUME 7.6 fl (7.4-10.4); MONOCYTES % 8.6 % (2.0-8.0); NEUTROPHILS % 57.7 % (40.0-76.0); PLATELET 302 x1000/uL (130-400); RED BLOOD CELL COUNT 2.98 mill/uL (4.7-6.1); RED CELL DISTRIBUTION WIDTH 14.6 % (11.6-14.6); WHITE BLOOD COUNT 6.5 x1000/uL (4.5-11.0)
[2024-08-11] MEDS: FAMOTIDINE 20MG/2ML VIAL IV ONE (16:11)
[2024-08-11] MEDS: MAGNESIUM/ALUMINUM HYDROXIDE/SIMETHICONE 30ML UDC PO ONE (16:11)
[2024-08-11 16:15] LABS: CHLORIDE 97 mEq/L (98-107); POTASSIUM 4.8 mEq/L (3.5-5.1); SODIUM 129 mEq/L (136-145)
[2024-08-11 16:16] LABS: CALCIUM 8.7 mg/dL (8.7-10.4); CARBON DIOXIDE 19 mEq/L (21-32)
[2024-08-11] MEDS: KETOROLAC 30MG/ML VIAL IV ONE (16:18)
[2024-08-11] MEDS: ONDANSETRON 4MG ODT PO ONE (16:19)
[2024-08-11 16:21] LABS: UREA NITROGEN BLOOD 10 mg/dL (9-23)
[2024-08-11 16:23] LABS: ALANINE AMINOTRANSFERASE 19 IU/L (10-49); ASPARTATE AMINOTRANSFERASE 41 IU/L (<34); BILIRUBIN DIRECT < 0.1 mg/dL (<=3.0); BILIRUBIN TOTAL 0.3 mg/dL (0.1-1.0); PROTEIN TOTAL 6.1 g/dL (6.0-8.3); TROPONIN I HIGH SENSITIVITY 9 ng/L (3.0-53)
[2024-08-11 16:33] LABS: GLUCOSE 526 mg/dL (70-105)
[2024-08-11] MEDS: SODIUM CHLORIDE 0.9% 1,000 ML IV ONE (17:21)
[2024-08-11] MEDS: CEFTRIAXONE 1GM/50ML 50 ML IV NR (17:22)
[2024-08-11 17:30] LABS: BG BASE EXCESS -4.7 mmol/L (-2.0-3.0); BG CARBOXYHEMOGLOBIN 4.6 % (0.5-1.5); BG DEOXYHEMOGLOBIN 6.3 % (0.0-5.0); BG HCO3 ACT 17.7 mmol/L (21.0-28.0); BG METHEMOGLOBIN 0.3 % (0.5-1.5); BG OXYGEN SATURATION 93.4 % (94.0-98.0); BG OXYHEMOGLOBIN 88.8 % (94.0-98.0); BG PCO2 25.2 mmHg (35.0-48.0); BG PO2 67.3 mmHg (83.0-108.0); BG TOTAL HEMOGLOBIN 10.9 g/dL (13.5-17.5)
[2024-08-11 17:32] LABS: BG FRACTION INSPIRED OXYGEN 21; BG SAMPLE SITE LEFT BRACHIAL; BG VENT MODE ROOM AIR
[2024-08-11] MEDS: AZITHROMYCIN 500MG/250ML 250 ML IV NR (17:37)
[2024-08-11] MEDS: INSULIN REGULAR (HUMULIN R) 1000UNITS/10ML VIAL SUBCUT NR (19:58)
[2024-08-11] MEDS ORDERED: SIMETHICONE 80MG TABLET CHEW PO PRN (20:00)
[2024-08-11] MEDS ORDERED: MAGNESIUM/ALUMINUM HYDROXIDE/SIMETHICONE 30ML UDC PO PRN (20:00)
[2024-08-11] MEDS ORDERED: ZOLPIDEM TARTRATE 5MG TABLET PO PRN (20:00)
[2024-08-11] MEDS ORDERED: IPRATROPIUM/ALBUTEROL 0.5-3(2.5)MG/3ML NEB NEB PRN (20:00)
[2024-08-11] MEDS ORDERED: DEXTROSE 50% WATER 50ML SYRINGE IV PRN (20:00)
[2024-08-11] MEDS ORDERED: ACETAMINOPHEN 325MG TABLET PO PRN (20:00)
[2024-08-11] MEDS ORDERED: CLONIDINE 0.1MG TABLET PO PRN (20:00)
[2024-08-11] MEDS ORDERED: ONDANSETRON HCL 4MG/2ML INJ IV PRN (20:00)
[2024-08-11 20:15] VITALS: BP 167/72; PULSE 68; RESP 68; TEMP 36.3; O2SAT 100
[2024-08-11] MEDS ORDERED: NALOXONE HCL 0.4MG/ML VIAL IV PRN (20:30)
[2024-08-11] MEDS: BLOOD SUGAR DIAGNOSTIC STRIP TEST SCH (20:37)
[2024-08-11] MEDS ORDERED: FAMOTIDINE(NEO) 1MG/ML SUSP PO SCH (21:00)
[2024-08-11 22:00] VITALS: BP 165/75; PULSE 65; RESP 20; TEMP 36.3
[2024-08-11] MEDS ORDERED: IOHEXOL-350 100 ML BOTTLE ONE (22:27)
[2024-08-11] MEDS: ATORVASTATIN CALCIUM 10MG TABLET PO SCH (22:29)
[2024-08-11] MEDS: ENOXAPARIN 40MG/0.4ML SYR SUBCUT SCH (22:29)
[2024-08-11] MEDS: FAMOTIDINE 20MG TABLET PO SCH (22:29)
[2024-08-11] MEDS: INSULIN GLARGINE 100 UNITS/ML SUBCUT SCH (22:31)
[2024-08-11] MEDS: INSULIN LISPRO 100 UNITS/ML SUBCUT SCH (22:32)
[2024-08-11] MEDS: SODIUM CHLORIDE 0.9% 1,000 ML IV SCH (22:33)
[2024-08-11] MEDS: HYDROCODONE/ACETAMINOPHEN 5/325MG TABLET PO PRN (22:35)
[2024-08-12] VITALS: BP 140/55; PULSE 77; RESP 18; TEMP 36.3; O2SAT 97
[2024-08-12 04:00] VITALS: BP 124/64; PULSE 64; RESP 18; TEMP 36.4; O2SAT 97
[2024-08-12 08:00] VITALS: BP 156/56; PULSE 68; RESP 20; TEMP 36.1; O2SAT 97
[2024-08-12] MEDS: ASPIRIN 81MG EC TABLET PO SCH (08:53)
[2024-08-12] MEDS: GABAPENTIN 300MG CAPSULE PO SCH (08:53)
[2024-08-12] MEDS: THIAMINE HCL 100MG TABLET PO SCH (08:54)
[2024-08-12] MEDS: SERTRALINE HCL 50MG TABLET PO SCH (08:54)
[2024-08-12] MEDS: TAMSULOSIN HCL 0.4MG SR CAPSULE PO SCH (08:55)
[2024-08-12] MEDS: PANTOPRAZOLE SODIUM 40 MG/VIAL IV SCH (08:55)
[2024-08-12] MEDS: LISINOPRIL 10MG TABLET PO SCH (08:55)
[2024-08-12] MEDS ORDERED: BENAZEPRIL HCL 10 MG PO SCH (09:00)
[2024-08-12 10:32] LABS: CARBON DIOXIDE 24 mEq/L (21-32); CHLORIDE 101 mEq/L (98-107); POTASSIUM 4.9 mEq/L (3.5-5.1); SODIUM 132 mEq/L (136-145)
[2024-08-12 10:34] LABS: CALCIUM 8.6 mg/dL (8.7-10.4)
[2024-08-12 10:36] LABS: TROPONIN I HIGH SENSITIVITY 9 ng/L (3.0-53)
[2024-08-12 10:38] LABS: CREATININE 0.7 mg/dL (0.6-1.3); UREA NITROGEN BLOOD 12 mg/dL (9-23)
[2024-08-12 10:50] LABS: GLUCOSE 297 mg/dL (70-105)
[2024-08-12 12:00] VITALS: BP 108/58; PULSE 78; RESP 19; TEMP 36.6; O2SAT 95
[2024-08-12] MEDS: DIPHENHYDRAMINE 50MG/ML VIAL IV PRN (12:11)
[2024-08-12 16:00] VITALS: BP 133/50; PULSE 60; RESP 19; TEMP 36.7; O2SAT 97
[2024-08-12] MEDS: CEFTRIAXONE 1GM/50ML 50 ML IV SCH (16:32)
[2024-08-12] MEDS: AZITHROMYCIN 500MG/250ML 250 ML IV SCH (17:24)
[2024-08-12] MEDS ORDERED: CEFTRIAXONE 1GM/50ML 50 ML IV SCH (17:30)
[2024-08-12] MEDS ORDERED: AZITHROMYCIN 500MG/250ML 250 ML IV SCH (18:00)
[2024-08-12 20:00] VITALS: BP 116/50; PULSE 65; RESP 16; TEMP 36.7; O2SAT 100
[2024-08-13] VITALS: BP 148/58; PULSE 60; RESP 18; TEMP 36.6; O2SAT 98
[2024-08-13] MEDS: FAMOTIDINE 20MG TABLET PO SCH (00:47)
[2024-08-13 04:00] VITALS: BP 151/71; PULSE 57; RESP 16; TEMP 36.1; O2SAT 100
[2024-08-13 08:18] VITALS: BP 160/62; PULSE 60; RESP 18; TEMP 35.8; O2SAT 97
[2024-08-13 09:01] VITALS: BP 160/62; PULSE 60; RESP 18
== END 2024-08-13 09:30 | disposition left against medical advice (07) | DRG 190 ==
LOC: ER 15:20 → EDBEDREQ 15:51 → ENRESERV 17:43 → 8WST 20:18
PROVIDERS: ADMIT Internal Medicine; ATTEND Internal Medicine
DX: J44.1 Chronic obstructive pulmonary disease with (acute) exacerbation (principal); E11.00 Type 2 diabetes mellitus with hyperosmolarity without nonketotic hyperglycemic-hyperosmolar coma (NKHHC); J96.91 Respiratory failure, unspecified with hypoxia; R10.13 Epigastric pain; E78.5 Hyperlipidemia, unspecified; I10 Essential (primary) hypertension; H40.9 Unspecified glaucoma; Z53.29 Procedure and treatment not carried out because of patient's decision for other reasons; Z87.11 Personal history of peptic ulcer disease; Z79.82 Long term (current) use of aspirin; Z79.899 Other long term (current) drug therapy; E11.65 Type 2 diabetes mellitus with hyperglycemia
CPT/HCPCS: 36415; 36600; 71045; 71275; 80048; 80076; 82010; 82375; 82805; 82962; 83036; 83880; 83930; 84484; 85025; 85379; 93005; 93970; 99291; A4606; J0456; J0696; J1200; J1308; J1650; J1815; J1885; J2470; Q0162; Q9967

== ENCOUNTER 2024-09-03 00:34 | Emergency (ER) | payer MEDICARE, MEDICAID ==
[~2024-09-03] VITALS: Ht 172.7 cm; Wt 66.0 kg
[2024-09-03 00:38] VITALS: TEMP 36.9; O2SAT 98
[2024-09-03] MEDS: VISCOUS LIDOCAINE 2% 15 ML UDC MM ONE (00:53)
[2024-09-03] MEDS: MAGNESIUM/ALUMINUM HYDROXIDE/SIMETHICONE 30ML UDC PO ONE (00:53)
[2024-09-03 04:58] LABS: BASOPHILS % 0.8 % (0.0-2.0); EOSINOPHILS % 1.7 % (0.0-5.0); HEMATOCRIT. 30.9 % (42.0-52.0); HEMOGLOBIN. 10.5 g/dL (14.0-18.0); LYMPHOCYTES % 52.5 % (20.0-50.0); MEAN PLATELET VOLUME 8.0 fl (7.4-10.4); MONOCYTES % 10.2 % (2.0-8.0); NEUTROPHILS % 34.8 % (40.0-76.0); PLATELET 294 x1000/uL (130-400); RED BLOOD CELL COUNT 3.25 mill/uL (4.7-6.1); RED CELL DISTRIBUTION WIDTH 15.4 % (11.6-14.6)
[2024-09-03 05:00] VITALS: O2SAT 100
[2024-09-03 05:13] LABS: INR 0.9
[2024-09-03 05:14] LABS: CREATININE 0.9 mg/dL (0.6-1.3); ETHANOL BLOOD 187 mg/dL (<10); TROPONIN I HIGH SENSITIVITY < 4 ng/L (3.0-53); UREA NITROGEN BLOOD 9 mg/dL (9-23)
[2024-09-03 05:20] VITALS: BP 109/53; PULSE 65; RESP 14; TEMP 98.5
[2024-09-03] MEDS ORDERED: PROT40 MT (05:30)
[2024-09-03] MEDS: ASPIRIN 81MG TABLET PO ONE (06:14)
== END 2024-09-03 06:15 | disposition home or self-care (01) ==
LOC: ER 00:34
DX: R07.89 Other chest pain (principal); F10.20 Alcohol dependence, uncomplicated; E11.9 Type 2 diabetes mellitus without complications; R06.02 Shortness of breath; I10 Essential (primary) hypertension
CPT/HCPCS: 36415; 71045; 80048; 80320; 83880; 84484; 85025; 93005; 99285; G0480

== ENCOUNTER 2024-09-09 02:18 | Emergency (ER) | payer MEDICARE, MEDICAID ==
[~2024-09-09] VITALS: Ht 185.4 cm; Wt 79.0 kg
[~2024-09-09 02:18] MED LIST changes: +PROT40 MT
[2024-09-09 02:28] VITALS: O2SAT 98
[2024-09-09 04:07] LABS: BASOPHILS % 2.0 % (0.0-2.0); EOSINOPHILS % 3.6 % (0.0-5.0); HEMATOCRIT. 32.3 % (42.0-52.0); HEMOGLOBIN. 11.1 g/dL (14.0-18.0); LYMPHOCYTES % 30.3 % (20.0-50.0); MONOCYTES % 7.2 % (2.0-8.0); NEUTROPHILS % 56.9 % (40.0-76.0); RED BLOOD CELL COUNT 3.39 mill/uL (4.7-6.1); RED CELL DISTRIBUTION WIDTH 15.3 % (11.6-14.6)
[2024-09-09 04:18] LABS: INR 0.9
[2024-09-09 04:26] LABS: CREATININE 1.0 mg/dL (0.6-1.3); UREA NITROGEN BLOOD 12 mg/dL (9-23)
[2024-09-09 04:27] LABS: ETHANOL BLOOD 116 mg/dL (<10); TROPONIN I HIGH SENSITIVITY 5 ng/L (3.0-53)
[2024-09-09 04:46] LABS: MEAN PLATELET VOLUME 7.9 fl (7.4-10.4); PLATELET 280 x1000/uL (130-400)
[2024-09-09 05:07] VITALS: BP 132/53; PULSE 64; RESP 14; TEMP 37; O2SAT 98
[2024-09-09] MEDS: VISCOUS LIDOCAINE 2% 15 ML UDC MM NR (05:12)
[2024-09-09] MEDS: MAGNESIUM/ALUMINUM HYDROXIDE/SIMETHICONE 30ML UDC PO NR (05:13)
[2024-09-09] MEDS: SODIUM CHLORIDE 0.9% 1,000 ML IV ONE (05:14)
[2024-09-09] MEDS ORDERED: MAG-55 MT (05:25)
== END 2024-09-09 05:32 | disposition home or self-care (01) ==
LOC: ER 02:18
DX: R53.1 Weakness (principal); E86.0 Dehydration; F10.129 Alcohol abuse with intoxication, unspecified; E11.65 Type 2 diabetes mellitus with hyperglycemia; I10 Essential (primary) hypertension; Z79.82 Long term (current) use of aspirin; Z79.899 Other long term (current) drug therapy; Z86.73 Personal history of transient ischemic attack (TIA), and cerebral infarction without residual deficits; Z87.11 Personal history of peptic ulcer disease; Y90.9 Presence of alcohol in blood, level not specified
CPT/HCPCS: 36415; 71045; 80048; 80320; 84484; 85025; 93005; 99285; G0480

== ENCOUNTER 2024-12-23 23:55 | Inpatient (IN) | payer MEDICARE, MEDICAID ==
[~2024-12-23] VITALS: Ht 185.4 cm; Wt 71.7 kg
[~2024-12-23 23:55] MED LIST changes: +MAG-55 MT
[2024-12-24] VITALS (9 sets, daily range): BP systolic 112–148; BP diastolic 64–80; PULSE 68–75; RESP 9–18; TEMP 36.4–36.5848; O2SAT 98–99
[2024-12-24 00:25] LABS: BASOPHILS % 1.6 % (0.0-2.0); EOSINOPHILS % 1.2 % (0.0-5.0); HEMATOCRIT. 32.9 % (42.0-52.0); HEMOGLOBIN. 10.8 g/dL (14.0-18.0); LYMPHOCYTES % 35.7 % (20.0-50.0); MONOCYTES % 8.1 % (2.0-8.0); NEUTROPHILS % 53.4 % (40.0-76.0); RED BLOOD CELL COUNT 3.40 mill/uL (4.7-6.1); RED CELL DISTRIBUTION WIDTH 15.0 % (11.6-14.6)
[2024-12-24] MEDS: SODIUM CHLORIDE 0.9% 1,000 ML IV ONE ×2 (00:33→02:13)
[2024-12-24 00:39] LABS: CREATININE 0.9 mg/dL (0.6-1.3); UREA NITROGEN BLOOD 10 mg/dL (9-23)
[2024-12-24 00:41] LABS: PHOSPHORUS 2.7 mg/dL (2.5-4.9)
[2024-12-24] MEDS: MAGNESIUM/ALUMINUM HYDROXIDE/SIMETHICONE 30ML UDC PO ONE (00:43)
[2024-12-24] MEDS: ASPIRIN 325MG EC TABLET PO ONE (00:43)
[2024-12-24] MEDS: MORPHINE SULFATE 4 MG/ML INJ (FOR IV/IM USE) IV ONE (00:44)
[2024-12-24 00:57] LABS: TROPONIN I HIGH SENSITIVITY 9 ng/L (3.0-53)
[2024-12-24] MEDS: INSULIN REGULAR (HUMULIN R) 1000UNITS/10ML VIAL SUBCUT NR (02:17)
[2024-12-24 03:16] LABS: MEAN PLATELET VOLUME 8.6 fl (7.4-10.4); PLATELET 240 x1000/uL (130-400)
[2024-12-24] MEDS ORDERED: PNEUMOCOCCAL 20-VAL CONJ-DIP CRM 0.5ML IM ONE (10:00)
[2024-12-24] MEDS ORDERED: ACETAMINOPHEN 325MG TABLET PO PRN ×2 (10:00)
[2024-12-24] MEDS ORDERED: IPRATROPIUM/ALBUTEROL 0.5-3(2.5)MG/3ML NEB HHN PRN (10:00)
[2024-12-24] MEDS ORDERED: DEXTROSE 50% WATER 50ML SYRINGE IV PRN ×2 (10:00→20:15)
[2024-12-24] MEDS ORDERED: DOCUSATE SODIUM 100MG CAPSULE PO PRN (10:00)
[2024-12-24] MEDS ORDERED: CLONIDINE 0.1MG TABLET PO PRN (10:00)
[2024-12-24 11:17] LABS: BG BASE EXCESS 3.4 mmol/L (-2.0-3.0); BG CARBOXYHEMOGLOBIN 3.3 % (0.5-1.5); BG DEOXYHEMOGLOBIN 3.5 % (0.0-5.0); BG FRACTION INSPIRED OXYGEN 21; BG HCO3 ACT 27.7 mmol/L (21.0-28.0); BG METHEMOGLOBIN 0.3 % (0.5-1.5); BG OXYGEN SATURATION 96.4 % (94.0-98.0); BG OXYHEMOGLOBIN 92.9 % (94.0-98.0); BG PCO2 40.9 mmHg (35.0-48.0); BG PH 7.449 (7.350-7.450); BG PO2 84.1 mmHg (83.0-108.0); BG SAMPLE SITE LEFT BRACHIAL; BG TOTAL HEMOGLOBIN 13.5 g/dL (13.5-17.5); BG VENT MODE ROOM AIR
[2024-12-24] MEDS: BLOOD SUGAR DIAGNOSTIC STRIP TEST SCH ×2 (11:36→20:33)
[2024-12-24] MEDS ORDERED: INSULIN LISPRO 100 UNITS/ML SUBCUT SCH ×2 (13:00→18:00)
[2024-12-24] MEDS ORDERED: NALOXONE HCL 0.4MG/ML VIAL IV PRN (13:45)
[2024-12-24] MEDS: INSULIN LISPRO 100 UNITS/ML SUBCUT SCH ×2 (13:56→20:36)
[2024-12-24] MEDS: ONDANSETRON HCL 4MG/2ML INJ IV PRN (14:07)
[2024-12-24] MEDS: TRAMADOL 50MG TABLET PO PRN (14:08)
[2024-12-24] MEDS: FOLIC ACID 1MG TABLET PO SCH (14:08)
[2024-12-24] MEDS: ASPIRIN 81MG TABLET PO SCH (14:08)
[2024-12-24] MEDS: MULTIVITAMINS,THER W-MINERALS TABLET PO SCH (14:08)
[2024-12-24] MEDS: PANTOPRAZOLE SODIUM 40 MG/VIAL IV SCH (14:09)
[2024-12-24] MEDS: THIAMINE HCL 100MG TABLET PO SCH (14:09)
[2024-12-24] MEDS: CHLORDIAZEPOXIDE 25MG CAPSULE PO SCH (14:09)
[2024-12-24] MEDS: SODIUM CHLORIDE 0.45% 1,000 ML IV SCH (14:17)
[2024-12-24] MEDS: ATORVASTATIN CALCIUM 40MG TABLET PO SCH (20:35)
[2024-12-24] MEDS: INSULIN GLARGINE 100 UNITS/ML SUBCUT SCH (21:38)
[2024-12-24] MEDS: DIPHENHYDRAMINE 25MG CAPSULE PO PRN (21:39)
[2024-12-25] VITALS (7 sets, daily range): BP systolic 100–141; BP diastolic 52–88; PULSE 58–89; RESP 10–22; TEMP 36.1–36.5; O2SAT 95–98
[2024-12-25] MEDS: ENOXAPARIN 40MG/0.4ML SYR SUBCUT SCH (09:10)
[2024-12-25] MEDS: INSULIN LISPRO 100 UNITS/ML SUBCUT SCH (09:13)
[2024-12-25 13:59] LABS: BASOPHILS % 0.9 % (0.0-2.0); EOSINOPHILS % 2.5 % (0.0-5.0); HEMATOCRIT. 33.3 % (42.0-52.0); HEMOGLOBIN. 11.3 g/dL (14.0-18.0); LYMPHOCYTES % 41.6 % (20.0-50.0); MEAN PLATELET VOLUME 8.2 fl (7.4-10.4); MONOCYTES % 7.6 % (2.0-8.0); NEUTROPHILS % 47.4 % (40.0-76.0); PLATELET 272 x1000/uL (130-400); RED BLOOD CELL COUNT 3.44 mill/uL (4.7-6.1); RED CELL DISTRIBUTION WIDTH 15.3 % (11.6-14.6)
[2024-12-25 14:13] LABS: TROPONIN I HIGH SENSITIVITY 4 ng/L (3.0-53)
[2024-12-25 14:17] LABS: FOLIC ACID (FOLATE) SERUM > 20.00 ng/mL (>5.38); VITAMIN B12 SERUM 686 pg/mL (211-911)
[2024-12-25 14:20] LABS: INR 1.0
== END 2024-12-25 14:13 | disposition left against medical advice (07) | DRG 638 ==
LOC: ER 23:55 → 5EST 12-24 01:47 → EDBEDREQTM 12-24 01:55 → EDBEDREQ 12-24 01:55 → ENRESERV 12-24 05:51
PROVIDERS: ADMIT Internal Medicine; ATTEND Internal Medicine
DX: E11.65 Type 2 diabetes mellitus with hyperglycemia (principal); E87.1 Hypo-osmolality and hyponatremia; F10.229 Alcohol dependence with intoxication, unspecified; D64.9 Anemia, unspecified; I10 Essential (primary) hypertension; R07.89 Other chest pain; Z53.29 Procedure and treatment not carried out because of patient's decision for other reasons; Z87.11 Personal history of peptic ulcer disease; Z91.148 Patient's other noncompliance with medication regimen for other reason
CPT/HCPCS: 36415; 36600; 71045; 76700; 80048; 80320; 82010; 82375; 82607; 82728; 82746; 82805; 82962; 83036; 83735; 83880; 83930; 84100; 84484; 85025; 93005; 93970; 96360; 99285; J1650; J1815; J2270; J2405; J2470; J7030; J7120; Q0163; G0480

== ENCOUNTER 2025-02-07 21:05 | Inpatient (IN) | payer MEDICARE, MEDICAID ==
[~2025-02-07] VITALS: Ht 180.3 cm; Wt 70.3 kg
[2025-02-07 21:12] VITALS: O2SAT 97
[2025-02-07] MEDS: VANCOMYCIN 1G PREMIX 200 ML IV ONE (21:30)
[2025-02-07 22:02] LABS: BASOPHILS % 0.8 % (0.0-2.0); EOSINOPHILS % 0.7 % (0.0-5.0); HEMATOCRIT. 37.4 % (42.0-52.0); HEMOGLOBIN. 12.7 g/dL (14.0-18.0); LYMPHOCYTES % 34.4 % (20.0-50.0); MEAN PLATELET VOLUME 8.5 fl (7.4-10.4); MONOCYTES % 8.6 % (2.0-8.0); NEUTROPHILS % 55.5 % (40.0-76.0); PLATELET 242 x1000/uL (130-400); RED BLOOD CELL COUNT 3.74 mill/uL (4.7-6.1); RED CELL DISTRIBUTION WIDTH 15.2 % (11.6-14.6)
[2025-02-07 22:15] LABS: CREATININE 0.9 mg/dL (0.6-1.3)
[2025-02-07 22:16] LABS: ETHANOL BLOOD 150 mg/dL (<10); PROTEIN TOTAL 6.5 g/dL (6.0-8.3); UREA NITROGEN BLOOD 11 mg/dL (9-23)
[2025-02-07] MEDS: PIPERACILLIN/TAZO 3.375G/50ML 50 ML IV ONE (22:16)
[2025-02-07] MEDS: SODIUM CHLORIDE 0.9% (SEPSIS BOLUS) IV ONE (22:16)
[2025-02-07 22:17] LABS: ASPARTATE AMINOTRANSFERASE 18 IU/L (<34); TROPONIN I HIGH SENSITIVITY 14 ng/L (3.0-53)
[2025-02-07 22:18] LABS: BILIRUBIN DIRECT 0.2 mg/dL (<=3.0); BILIRUBIN TOTAL 0.7 mg/dL (0.1-1.0)
[2025-02-07 22:31] LABS: BG BASE EXCESS 0.7 mmol/L (-2.0-3.0); BG CARBOXYHEMOGLOBIN 6.6 % (0.5-1.5); BG DEOXYHEMOGLOBIN 5.0 % (0.0-5.0); BG FRACTION INSPIRED OXYGEN 28; BG HCO3 ACT 24.4 mmol/L (21.0-28.0); BG METHEMOGLOBIN 0.3 % (0.5-1.5); BG OXYGEN SATURATION 94.6 % (94.0-98.0); BG OXYHEMOGLOBIN 88.1 % (94.0-98.0); BG PCO2 35.8 mmHg (35.0-48.0); BG PH 7.451 (7.350-7.450); BG PO2 70.0 mmHg (83.0-108.0); BG SAMPLE SITE RIGHT RADIAL; BG TOTAL HEMOGLOBIN 12.8 g/dL (13.5-17.5); BG VENT MODE NASAL CANNULA
[2025-02-07 22:38] LABS: CLARITY URINE CLEAR (CLEAR); COLOR URINE YELLOW (YELLOW); GLUCOSE URINE 3+ (NEGATIVE); KETONES URINE 1+ (NEGATIVE); LEUKOCYTE ESTERASE URINE NEGATIVE (NEGATIVE); NITRITE URINE NEGATIVE (NEGATIVE); OCCULT BLOOD URINE NEGATIVE (NEGATIVE); PH URINE 6.0 (4.5-8.0); PROTEIN URINE NEGATIVE (NEGATIVE); SPECIFIC GRAVITY URINE 1.020 (1.005-1.030); UROBILINOGEN URINE 0.2 E.U./dL (0.2-1.0)
[2025-02-07 22:50] LABS: RBC URINE NONE SEEN /hpf (0-2); WBC URINE NONE SEEN /hpf (0-2)
[2025-02-07 22:51] LABS: BACTERIA URINE NONE SEEN; SQUAMOUS EPITHELIAL CELL URINE RARE /lpf (RARE/1+)
[2025-02-07 22:54] LABS: *AMPHETAMINES SCREEN URINE NEGATIVE (NEGATIVE); *BARBITURATES SCREEN URINE NEGATIVE (NEGATIVE); *BENZODIAZEPINES SCREEN URINE NEGATIVE (NEGATIVE); *COCAINE SCREEN URINE NEGATIVE (NEGATIVE); CANNABINOID URINE SCREEN NEGATIVE (NEGATIVE); ECSTASY MDMA SCREEN URINE NEGATIVE (NEGATIVE); METHADONE URINE SCREEN NEGATIVE (NEGATIVE); OPIATES URINE SCREEN NEGATIVE (NEGATIVE); PHENCYCLIDINE URINE SCREEN NEGATIVE (NEGATIVE)
[2025-02-07] MEDS: MORPHINE SULFATE 4 MG/ML INJ (FOR IV/IM USE) IV ONE (23:23)
[2025-02-08] VITALS (32 sets, daily range): BP systolic 96–208; BP diastolic 47–125; PULSE 57–76; RESP 10–18; TEMP 36.1–36.9; O2SAT 92–100
[2025-02-08] MEDS ORDERED: DEXT 5%/0.9% NACL 1,000 ML IV SCH
[2025-02-08] MEDS ORDERED: SODIUM CHLORIDE 0.9% 1,000 ML IV SCH
[2025-02-08] MEDS ORDERED: BLOOD SUGAR DIAGNOSTIC STRIP TEST SCH
[2025-02-08] MEDS ORDERED: INSULIN REGULAR (DRIP) 100 UNITS in SODIUM CHLORIDE 0.9% 99 ML IV SCH
[2025-02-08] MEDS ORDERED: ACETAMINOPHEN 325MG TABLET PO PRN ×2 (00:15)
[2025-02-08] MEDS ORDERED: ONDANSETRON HCL 4MG/2ML INJ IV PRN (00:15)
[2025-02-08] MEDS ORDERED: MAGNESIUM/ALUMINUM HYDROXIDE/SIMETHICONE 30ML UDC PO PRN (00:15)
[2025-02-08] MEDS ORDERED: MAGNESIUM 2 G PREMIX 50 ML IV PRN ×2 (00:15)
[2025-02-08] MEDS ORDERED: POTASSIUM CHLORIDE 40 MEQ in SODIUM CHLORIDE 0.9% 230 ML IV PRN ×2 (00:15)
[2025-02-08] MEDS ORDERED: BLOOD SUGAR DIAGNOSTIC STRIP TEST PRN ×2 (00:15)
[2025-02-08] MEDS ORDERED: KCL 20MEQ/100ML PREMIX 100 ML IV PRN ×2 (00:15)
[2025-02-08] MEDS ORDERED: SODIUM PHOSPHATE 15 MMOL in SODIUM CHLORIDE 0.9% 245 ML IV PRN ×2 (00:15)
[2025-02-08] MEDS ORDERED: GUAIFENESIN 200MG/10ML SUGAR FREE UDC PO PRN (00:15)
[2025-02-08] MEDS ORDERED: IPRATROPIUM/ALBUTEROL 0.5-3(2.5)MG/3ML NEB HHN PRN (00:15)
[2025-02-08] MEDS ORDERED: DEXTROSE 50% WATER 50ML SYRINGE IV PRN ×3 (00:15→09:00)
[2025-02-08 00:25] LABS: PHOSPHORUS 3.5 mg/dL (2.5-4.9); TROPONIN I HIGH SENSITIVITY 15 ng/L (3.0-53)
[2025-02-08] MEDS: INSULIN REGULAR (HUMULIN R) 1000UNITS/10ML VIAL IV ONE (00:49)
[2025-02-08] MEDS: FOLIC ACID 1 MG, THIAMINE HCL 100 MG, MVI, ADULT NO.1 10 ML in DEXTROSE 5% WATER 1,000 ML IV ONE (01:00)
[2025-02-08] MEDS: BLOOD SUGAR DIAGNOSTIC STRIP TEST SCH ×2 (01:07→09:00)
[2025-02-08] MEDS: INSULIN REGULAR (DRIP) 100 UNITS in SODIUM CHLORIDE 0.9% 99 ML IV SCH (01:09)
[2025-02-08] MEDS: KETOROLAC 15MG/ML VIAL IV PRN (02:17)
[2025-02-08] MEDS: LORAZEPAM 2MG/ML UD SYRINGE IV PRN (02:30)
[2025-02-08] MEDS: LACTATED RINGERS 1,000 ML IV SCH (02:48)
[2025-02-08 03:01] LABS: VITAMIN B12 SERUM 364 pg/mL (211-911)
[2025-02-08 03:38] LABS: FOLIC ACID (FOLATE) SERUM 32.60 ng/mL (>5.38)
[2025-02-08] MEDS: DEXT 5%/LACTATED RINGERS 1,000 ML IV SCH (03:44)
[2025-02-08 06:22] LABS: BASOPHILS % 0.7 % (0.0-2.0); EOSINOPHILS % 2.5 % (0.0-5.0); HEMATOCRIT. 35.3 % (42.0-52.0); HEMOGLOBIN. 12.1 g/dL (14.0-18.0); LYMPHOCYTES % 45.8 % (20.0-50.0); MEAN PLATELET VOLUME 7.9 fl (7.4-10.4); MONOCYTES % 11.5 % (2.0-8.0); NEUTROPHILS % 39.5 % (40.0-76.0); PLATELET 227 x1000/uL (130-400); RED BLOOD CELL COUNT 3.51 mill/uL (4.7-6.1); RED CELL DISTRIBUTION WIDTH 15.3 % (11.6-14.6)
[2025-02-08 06:33] LABS: TROPONIN I HIGH SENSITIVITY 18 ng/L (3.0-53)
[2025-02-08 06:34] LABS: CREATININE 0.7 mg/dL (0.6-1.3)
[2025-02-08 06:35] LABS: PROTEIN TOTAL 5.5 g/dL (6.0-8.3); UREA NITROGEN BLOOD 9 mg/dL (9-23)
[2025-02-08 06:36] LABS: ASPARTATE AMINOTRANSFERASE 18 IU/L (<34); BILIRUBIN DIRECT 0.2 mg/dL (<=3.0); PHOSPHORUS 2.9 mg/dL (2.5-4.9)
[2025-02-08 06:37] LABS: BILIRUBIN TOTAL 0.6 mg/dL (0.1-1.0)
[2025-02-08] MEDS ORDERED: POTASSIUM CHLORIDE 40 MEQ in DEXT 5% WATER 230 ML IV ONE (07:30)
[2025-02-08] MEDS: KCL 20MEQ/100ML X 2 FOR TOTAL KCL 40MEQ/200ML IV SCH (08:24)
[2025-02-08] MEDS: MAGNESIUM 2 G PREMIX 50 ML IV NR (08:24)
[2025-02-08] MEDS: INSULIN GLARGINE 100 UNITS/ML SUBCUT NR (08:25)
[2025-02-08 08:32] LABS: INFLUENZA TYPE A Presumptive Negative (Pres. Neg.); INFLUENZA TYPE B Presumptive Negative (Pres. Neg.)
[2025-02-08 08:33] LABS: RESPIRATORY SYNCYTIAL VIRUS Not Detected (Not Detectd)
[2025-02-08 08:58] LABS: CREATINE KINASE MB FRACTION 3.4 ng/mL (0.5-3.6)
[2025-02-08] MEDS: NICOTINE 7MG PATCH TD SCH (09:00)
[2025-02-08] MEDS: INSULIN LISPRO 100 UNITS/ML SUBCUT SCH (09:00)
[2025-02-08] MEDS: ASPIRIN 81MG TABLET PO SCH (10:01)
[2025-02-08] MEDS: THIAMINE HCL 100MG TABLET PO SCH (10:02)
[2025-02-08] MEDS: PANTOPRAZOLE SODIUM 40 MG/VIAL IV SCH (10:02)
[2025-02-08] MEDS: ENOXAPARIN 40MG/0.4ML SYR SUBCUT SCH (10:02)
[2025-02-08] MEDS: MULTIVITAMINS,THER W-MINERALS TABLET PO SCH (10:03)
[2025-02-08] MEDS: TAMSULOSIN HCL 0.4MG SR CAPSULE PO SCH (10:03)
[2025-02-08] MEDS: FOLIC ACID 1MG TABLET PO SCH (10:03)
[2025-02-08] MEDS ORDERED: HYDRALAZINE HCL 50MG TABLET PO PRN (12:00)
[2025-02-08 15:52] LABS: CREATININE 0.7 mg/dL (0.6-1.3); UREA NITROGEN BLOOD 10 mg/dL (9-23)
[2025-02-08 15:54] LABS: CREATINE KINASE MB FRACTION 3.2 ng/mL (0.5-3.6); PHOSPHORUS 3.4 mg/dL (2.5-4.9); TROPONIN I HIGH SENSITIVITY 12 ng/L (3.0-53)
[2025-02-08] MEDS: KETOROLAC 30MG/ML VIAL IV NR (16:45)
[2025-02-08] MEDS: ATORVASTATIN CALCIUM 40MG TABLET PO SCH (21:45)
[2025-02-08] MEDS: DOCUSATE SODIUM 100MG CAPSULE PO PRN (21:54)
[2025-02-08] MEDS: HYDROCODONE/ACETAMINOPHEN 5/325MG TABLET PO NR (22:49)
[2025-02-08] MEDS: DIPHENHYDRAMINE 25MG CAPSULE PO NR (22:49)
[2025-02-09] VITALS: BP 143/77; PULSE 71; RESP 18; TEMP 36.5; O2SAT 97
[2025-02-09 04:00] VITALS: BP 152/71; PULSE 64; RESP 17; TEMP 36.3; O2SAT 97
[2025-02-09 06:23] LABS: BASOPHILS % 0.6 % (0.0-2.0); EOSINOPHILS % 2.5 % (0.0-5.0); HEMATOCRIT. 37.0 % (42.0-52.0); HEMOGLOBIN. 12.7 g/dL (14.0-18.0); LYMPHOCYTES % 32.3 % (20.0-50.0); MEAN PLATELET VOLUME 8.5 fl (7.4-10.4); MONOCYTES % 8.0 % (2.0-8.0); NEUTROPHILS % 56.6 % (40.0-76.0); PLATELET 233 x1000/uL (130-400); RED BLOOD CELL COUNT 3.70 mill/uL (4.7-6.1); RED CELL DISTRIBUTION WIDTH 15.9 % (11.6-14.6)
[2025-02-09 06:58] LABS: PROTEIN TOTAL 6.4 g/dL (6.0-8.3)
[2025-02-09 06:59] LABS: ASPARTATE AMINOTRANSFERASE 25 IU/L (<34); BILIRUBIN DIRECT 0.2 mg/dL (<=3.0)
[2025-02-09 07:00] LABS: BILIRUBIN TOTAL 0.6 mg/dL (0.1-1.0)
[2025-02-09 07:03] LABS: TRIGLYCERIDE 95 mg/dL (0-150)
[2025-02-09 07:04] LABS: PROTEIN TOTAL 6.4 g/dL (6.0-8.3); T4 FREE 1.08 ng/dL (0.89-1.76)
[2025-02-09 07:05] LABS: CREATININE 0.8 mg/dL (0.6-1.3); UREA NITROGEN BLOOD 15 mg/dL (9-23)
[2025-02-09 07:06] LABS: LDL CHOLESTEROL 81 mg/dL (5-100)
[2025-02-09 07:07] LABS: ASPARTATE AMINOTRANSFERASE 25 IU/L (<34); BILIRUBIN DIRECT 0.2 mg/dL (<=3.0)
[2025-02-09 07:08] LABS: BILIRUBIN TOTAL 0.5 mg/dL (0.1-1.0); PHOSPHORUS 3.7 mg/dL (2.5-4.9)
[2025-02-09 08:00] VITALS: BP 164/78; PULSE 78; RESP 18; TEMP 36.3; O2SAT 98
[2025-02-09] MEDS: INSULIN GLARGINE 100 UNITS/ML SUBCUT SCH (09:26)
[2025-02-09] MEDS: SODIUM CHLORIDE 0.9% 500 ML IV ONE (10:00)
[2025-02-09] MEDS: AMLODIPINE 10MG TABLET PO SCH (11:38)
[2025-02-09 12:00] VITALS: BP 180/83; PULSE 71; RESP 18; TEMP 36.7; O2SAT 99
[2025-02-09] MEDS: CLONIDINE 0.1MG TABLET PO PRN (12:47)
[2025-02-09] MEDS ORDERED: LANTUSUD SUBCUT (14:35)
[2025-02-09] MEDS ORDERED: LIP40 PO (14:35)
[2025-02-09] MEDS ORDERED: AMLO10TA80 PO (14:35)
[2025-02-09] MEDS ORDERED: TAMS-54 MT (14:35)
[2025-02-09] MEDS ORDERED: ASPI-1497 PO (14:35)
[2025-02-09 16:00] VITALS: BP 150/73; PULSE 93; RESP 18; TEMP 36.1; O2SAT 99
== END 2025-02-09 17:30 | disposition left against medical advice (07) | DRG 637 ==
LOC: ER 21:05 → CVICU 23:04 → EDBEDREQSVC 23:10 → EDBEDREQTM 23:10 → EDBEDREQ 23:10 → ENRESERV 02-08 00:46 → 5WST 02-08 17:26
PROVIDERS: ADMIT Hospitalist; ATTEND Hospitalist
DX: E11.00 Type 2 diabetes mellitus with hyperosmolarity without nonketotic hyperglycemic-hyperosmolar coma (NKHHC) (principal); G92.8 Other toxic encephalopathy; R57.1 Hypovolemic shock; I50.33 Acute on chronic diastolic (congestive) heart failure; I11.0 Hypertensive heart disease with heart failure; J44.1 Chronic obstructive pulmonary disease with (acute) exacerbation; D53.9 Nutritional anemia, unspecified; F10.129 Alcohol abuse with intoxication, unspecified; E87.1 Hypo-osmolality and hyponatremia; E87.20 Acidosis, unspecified; Z53.29 Procedure and treatment not carried out because of patient's decision for other reasons; E78.5 Hyperlipidemia, unspecified; I95.9 Hypotension, unspecified; E87.6 Hypokalemia; N40.0 Benign prostatic hyperplasia without lower urinary tract symptoms; E83.42 Hypomagnesemia; F17.210 Nicotine dependence, cigarettes, uncomplicated; Z79.4 Long term (current) use of insulin; Z79.82 Long term (current) use of aspirin; Z79.84 Long term (current) use of oral hypoglycemic drugs; Z79.899 Other long term (current) drug therapy; Z87.11 Personal history of peptic ulcer disease; Y90.6 Blood alcohol level of 120-199 mg/100 ml; Z91.148 Patient's other noncompliance with medication regimen for other reason
CPT/HCPCS: 36415; 36600; 71045; 80048; 80051; 80061; 80076; 80305; 80320; 81003; 82010; 82375; 82550; 82553; 82607; 82728; 82746; 82805; 82962; 82977; 83036; 83540; 83550; 83605; 83735; 83880; 83930; 84100; 84145; 84439; 84443; 84481; 84484; 85025; 85044; 87420; 87804; 93005; 99291; J1650; J1815; J1885; J2060; J2270; J2470; J2543; J3373; J3411; J3475; J3480; J3490; J7030; J7042; J7050; J7070; Q0163; G0480

== ENCOUNTER 2025-02-22 23:46 | Emergency (ER) | payer MEDICARE, MEDICAID ==
[~2025-02-22] VITALS: Ht 188 cm; Wt 74.0 kg
[~2025-02-22 23:46] MED LIST changes: +AMLO10TA80 PO; -ATOR10TA PO; -CHLO25CA10 PO; +HYDR-4001 MT; -LANTUSUD SUBCUT; +LIP40 PO; +NVLG73 SUBCUT; -PROT40 MT
[2025-02-22 23:54] VITALS: O2SAT 95
[2025-02-23 00:25] VITALS: BP 107/49; PULSE 70; RESP 12; TEMP 36.6; O2SAT 100
[2025-02-23] MEDS ORDERED: ONDANSETRON 4MG ODT PO ONE (01:15)
[2025-02-23] MEDS ORDERED: HYDROCODONE/ACETAMINOPHEN 5/325MG TABLET PO ONE (01:15)
== END 2025-02-23 01:27 | disposition left against medical advice (07) ==
LOC: ER 23:46
DX: R10.84 Generalized abdominal pain (principal); E11.9 Type 2 diabetes mellitus without complications; F17.200 Nicotine dependence, unspecified, uncomplicated; I10 Essential (primary) hypertension; Z79.4 Long term (current) use of insulin; Z79.82 Long term (current) use of aspirin; Z79.899 Other long term (current) drug therapy
CPT/HCPCS: 93005; 99284